=== PATIENT | female | born 1950 | race Caucasian/White ===

== ENCOUNTER 2017-12-30 06:58 | Day surgery (SDC) | payer MEDICARE, OTHER ==
[2017-12-30] MEDS ORDERED: LACTATED RINGERS 1,000 ML IV ONE (07:54)
[2017-12-30] MEDS ORDERED: BENZOCAINE/TETRACAINE/BUTAMBEN SPRAY 56 GM TOP ONE ×2 (08:01→08:42)
[2017-12-30] MEDS ORDERED: fentaNYL 100 MCG/2 ML VIAL IVP ONE (08:38)
[2017-12-30] MEDS ORDERED: MIDAZOLAM 2 MG/2 ML VIAL IVP ONE (08:38)
[2017-12-30 10:02] VITALS: BP 146/60
== END 2017-12-30 06:59 | disposition home or self-care (01) ==
LOC: SDS 06:58
PROVIDERS: ATTEND Surgery
PROC: 0DB78ZX Excision of Stomach, Pylorus, Via Natural or Artificial Opening Endoscopic, Diagnostic (ICD-10-PCS; 2017-12-30)
PROC: 0DB38ZX Excision of Lower Esophagus, Via Natural or Artificial Opening Endoscopic, Diagnostic (ICD-10-PCS; 2017-12-30)
PROC: 0DJD8ZZ Inspection of Lower Intestinal Tract, Via Natural or Artificial Opening Endoscopic (ICD-10-PCS; principal; 2017-12-30 08:30)
PROC: 0DB98ZX Excision of Duodenum, Via Natural or Artificial Opening Endoscopic, Diagnostic (ICD-10-PCS; 2017-12-30 08:30)
DX: Z12.11 Encounter for screening for malignant neoplasm of colon (principal); K64.8 Other hemorrhoids; K29.80 Duodenitis without bleeding; K26.9 Duodenal ulcer, unspecified as acute or chronic, without hemorrhage or perforation; K44.9 Diaphragmatic hernia without obstruction or gangrene; R12 Heartburn; K20.9 Esophagitis, unspecified; E11.9 Type 2 diabetes mellitus without complications; I10 Essential (primary) hypertension; E78.5 Hyperlipidemia, unspecified; Z79.84 Long term (current) use of oral hypoglycemic drugs; Z79.82 Long term (current) use of aspirin
CPT/HCPCS: 43239; A9270; G0121; J7120

== ENCOUNTER 2018-04-22 12:21 | Inpatient (IN) | payer MEDICARE, OTHER ==
[2018-04-22 13:18] LABS: CALCIUM 9.5 mg/dL (8.5-10.3); CREATININE 0.6 mg/dL (0.4-1.0); MAGNESIUM 1.6 mg/dL (1.7-2.8); PHOSPHORUS 3.1 mg/dL (2.5-4.6)
--- NOTE | 2018-04-22 13:25 | XRAY Report ---
EXAM: CHEST RADIOGRAPHY EXAM DATE: 04/22/2018 12:41 PM. CLINICAL HISTORY: Hyponatremia. Weakness. Shaky. COMPARISON: None. TECHNIQUE: 2 views. FINDINGS: Lungs/Pleura: No focal opacities evident. No pleural effusion. No pneumothorax. Normal volumes. Mediastinum: Heart size is normal. Aorta is mildly tortuous. Aortic atherosclerosis. Other: Degenerative changes of the thoracic spine. IMPRESSION: 1. No acute disease in the chest. [facility] Referring Provider Line: [phone] SITE ID: [id number]
[2018-04-22] MEDS ORDERED: SODIUM CHLORIDE 0.9% 1,000 ML IV ONE (13:31)
--- NOTE | 2018-04-22 13:34 | ED Physician Documentation ---
History of Present Illness - Stated complaint Stated Complaint: LOW SODIUM - Chief complaint Chief Complaint: General - History obtained from History obtained from: Patient - History of Present Illness Timing: Other (67-year-old woman with history of hypertension. About a week and a half ago she was switched from atenolol to lisinopril and chlorthalidone. Starting about 4 days ago she has had poor sleep, vertigo, and headaches. She was seen in the [place] [facility] for the symptoms and had testing done including a CT which was out without acute change, and she had blood work which was notable for a sodium of 118, chloride of 83, and she was sent here for further evaluation and treatment. She denies seizure activity. She has not had altered mental status. Headaches are bitemporal and not severe.) Review of Systems Ten Systems: 10 systems reviewed and negative Constitutional: reports: Fatigue. 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 HEENT: Tonsil/Adenoidectomy - Present Medications Home Medications: Ambulatory Orders Medication Instructions Recorded Confirmed Allopurinol [Zyloprim] 200 mg PO DAILY 12/29/17 12/30/17 Aspirin 81 mg PO DAILY 12/29/17 12/30/17 Atenolol 100 mg PO DAILY 12/29/17 12/30/17 Metformin HCl [Metformin HCl ER] 1,000 mg PO DAILY 12/29/17 12/30/17 Red Yeast Rice 1,200 mg PO DAILY 12/29/17 12/30/17 - Allergies Allergies/Adverse Reactions: Allergies Allergy/AdvReac Type Severity Reaction Status Date / Time formaldehyde AdvReac Itching Verified 12/30/17 07:57 nickel AdvReac Edema Verified 12/30/17 07:57 - Family History Family history: reports: Non contributory PD ED PE NORMAL - Vitals Vital signs reviewed: Yes - General General: Alert and oriented X 3, No acute distress - HEENT HEENT: PERRL, EOMI - Neck Neck: Supple, no meningeal sign, No bony TTP - Cardiac Cardiac: RRR, No murmur - Respiratory Respiratory: No respiratory distress, Clear bilaterally - Abdomen Abdomen: Normal bowel sounds, Soft, Non tender - Back Back: No CVA TTP, No spinal TTP - Derm Derm: Normal color, Warm and dry - Extremities Extremities: No deformity, No tenderness to palpate, No edema, No calf tenderness / cord - Neuro Neuro: Alert and oriented X 3, Normal speech - Psych Psych: Normal mood, Normal affect Results - Vitals Vitals: Vital Signs - 24 hr 04/22/18 12:26 Temperature 36.3 C L Heart Rate 76 Respiratory 18 Rate Blood Pressure 180/75 H O2 Saturation 100 Oxygen O2 Source Room air - Labs Labs: Laboratory Tests 04/22/18 13:00 Sodium 115 L* Potassium 4.3 Chloride 82 L Carbon Dioxide 22 Anion Gap 11.0 BUN 14 Creatinine 0.6 Estimated GFR (MDRD) 99 Glucose 112 H Calcium 9.5 Phosphorus 3.1 Magnesium 1.6 L - Rads (name of study) 2v chest Radiology: EMP read contemporaneously (NAD) PD MEDICAL DECISION MAKING - ED course ED course: 67-year-old woman with acute hyponatremia likely due to starting chlorthalidone 2 weeks ago. The levels are such that it probably mandates hospital admission. She is appears euvolemic but is probably slightly hypovolemic from the new diuretic and is started on very gentle saline rehydration and a free water restriction. Call to the hospitalist for admission at 1:30 PM. Departure - Departure Disposition: 66 [facility] DC/Xfer Clinical Impression: Hyponatremia Condition: Serious
[2018-04-22 13:53] LABS: BASOPHILS # (AUTO) 0.1 10^3/uL (0.0-0.1); BASOPHILS % (AUTO) 0.7 %; EOSINOPHILS # (AUTO) 0.3 10^3/uL (0.0-0.7); EOSINOPHILS % (AUTO) 2.7 %; HGB - HEMOGLOBIN 15.6 g/dL (12.0-16.0); LYMPHOCYTES # (AUTO) 3.2 10^3/uL (1.5-3.5); LYMPHOCYTES % (AUTO) 29.5 %; MEAN CORPUSCULAR HEMOGLOBIN 31.9 pg (27.0-31.0); MEAN CORPUSCULAR HGB CONC 35.5 g/dL (32.0-36.0); MEAN CORPUSCULAR VOLUME 89.9 fL (81.0-99.0); MEAN PLATELET VOLUME 8.9 fL (7.9-10.8); MONOCYTES # (AUTO) 0.8 10^3/uL (0.0-1.0); MONOCYTES % (AUTO) 7.6 %; NEUTROPHILS # (AUTO) 6.4 10^3/uL (1.5-6.6); NEUTROPHILS % (AUTO) 59.5 %; PLT - PLATELET COUNT 256 10^3/uL (130-450); RED CELL DISTRIBUTION WIDTH 13.2 % (12.0-15.0); WHITE BLOOD COUNT 10.7 x10^3/uL (4.8-10.8)
[2018-04-22] MEDS ORDERED: ONDANSETRON 4 MG/2 ML VIAL IVP PRN ×2 (14:13→15:30)
[2018-04-22] MEDS ORDERED: ONDANSETRON ODT 4 MG TABLET TL PRN ×2 (14:13→15:30)
[2018-04-22] MEDS ORDERED: SODIUM CHLORIDE FLUSH 0.9% 10 ML SYRINGE IVP PRN ×2 (14:13→15:30)
[2018-04-22] MEDS ORDERED: ACETAMINOPHEN 325 MG TABLET PO PRN ×2 (14:13→15:30)
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
[2018-04-22] MEDS ORDERED: SODIUM CHLORIDE 0.9% 1,000 ML IV SCH (15:00)
[2018-04-22] MEDS: SODIUM CHLORIDE 0.9% 1,000 ML IV SCH (16:27)
[2018-04-22] MEDS: SODIUM CHLORIDE FLUSH 0.9% 10 ML SYRINGE IVP SCH (16:29)
[2018-04-22] MEDS ORDERED: SODIUM CHLORIDE FLUSH 0.9% 10 ML SYRINGE IVP SCH (17:00)
[2018-04-22 18:49] LABS: CALCIUM 9.1 mg/dL (8.5-10.3); CREATININE 0.8 mg/dL (0.4-1.0)
[2018-04-22] MEDS: ALLOPURINOL 100 MG TABLET PO SCH (19:57)
[2018-04-22] MEDS: ASPIRIN CHEW 81 MG TABLET PO SCH (19:57)
[2018-04-22] MEDS: NAPROXEN 250 MG TABLET PO PRN (20:32)
[2018-04-22] MEDS ORDERED: ALLOPURINOL 100 MG TABLET PO SCH (21:00)
[2018-04-22] MEDS ORDERED: ASPIRIN CHEW 81 MG TABLET PO SCH (21:00)
[2018-04-23] MEDS: SODIUM CHLORIDE FLUSH 0.9% 10 ML SYRINGE IVP SCH ×3 (01:03→16:41)
[2018-04-23] MEDS: SODIUM CHLORIDE 0.9% 1,000 ML IV SCH ×2 (02:32→15:36)
[2018-04-23] MEDS ORDERED: NON FORMULARY MED (Losartan Potassium [Losartan Potassium] 25 MG) PO SCH (09:00)
[2018-04-23] MEDS ORDERED: POLYETHYLENE GLYCOL 3350 17 GM PACKET PO SCH (09:00)
[2018-04-23] MEDS: INSULIN ASPART 300 UNIT/3 ML PEN SUBQ SCH ×4 (09:05→20:38)
[2018-04-23] MEDS: LOSARTAN 50 MG TABLET PO SCH (09:23)
[2018-04-23] MEDS: POLYETHYLENE GLYCOL 3350 17 GM PACKET PO SCH (09:23)
[2018-04-23 09:25] LABS: CALCIUM 8.8 mg/dL (8.5-10.3); CREATININE 0.7 mg/dL (0.4-1.0)
--- NOTE | 2018-04-23 12:30 | PROVIDER PROGRESS NOTE ---
Subjective - Prog Note Date Prog Note Date: 04/23/18 Prog Note Time: 12:28 - Subjective Pt reports feeling: Improved Subjective: less headache. less nausea. sodium has improved. Current Medications - Current Medications Current Medications: Active Medications Allopurinol (Zyloprim) 200 mg PO QPM [facility] Last Admin: 04/22/18 19:57 Dose: 200 mg Aspirin (St Memo Aspirin) 81 mg PO QPM [facility] Last Admin: 04/22/18 19:57 Dose: 81 mg Sodium Chloride (Normal Saline 0.9%) 1,000 mls @ 75 mls/hr IV .[id number] [facility] Last Admin: 04/23/18 02:32 Dose: 75 mls/hr Insulin Aspart (Novolog) 1 - 5 unit SUBQ 0800,1200,1700,2100 [facility] PRN Reason: Protocol Last Admin: 04/23/18 11:16 Dose: Not Given Losartan Potassium (Cozaar) 25 mg PO DAILY [facility] Last Admin: 04/23/18 09:23 Dose: 25 mg Naproxen (Naprosyn) 250 mg PO TID PRN PRN Reason: PAIN Last Admin: 04/22/18 20:32 Dose: 250 mg Ondansetron HCl (Zofran Inj) 4 mg IVP Q6HR PRN PRN Reason: Nausea / Vomiting Ondansetron HCl (Zofran Odt) 4 mg TL Q6HR PRN PRN Reason: Nausea / Vomiting Polyethylene Glycol (Miralax) 17 gm PO DAILY [facility] Last Admin: 04/23/18 09:23 Dose: 17 gm Sodium Chloride (Normal Saline Flush 0.9%) 10 ml IVP PRN PRN PRN Reason: NEEDED PER PROVIDER ORDERS Sodium Chloride (Normal Saline Flush 0.9%) 10 ml IVP 0100,0900,1700 [facility] Last Admin: 04/23/18 09:06 Dose: Not Given Allopurinol [Zyloprim] 200 mg PO QPM 12/29/17 Aspirin 81 mg PO QPM 12/29/17 Metformin HCl [Metformin HCl ER] 1,000 mg PO 1700 12/29/17 Red Yeast Rice 1,200 mg PO DAILY 12/29/17 Chlorthalidone 50 mg PO DAILY 04/22/18 Cholecalciferol (Vitamin D3) [Vitamin D3] 1,000 units PO DAILY 04/22/18 Losartan Potassium 25 mg PO DAILY 04/22/18 Omeprazole 20 mg PO QDAC 04/22/18 Objective - Vital Signs/Intake & Output Reviewed Vital Signs: Yes Vital Signs: Vital Signs x48h Temp Pulse Resp BP BP Pulse Ox 04/23/18 11:27 36.2 C L 83 18 158/65 H 98 04/23/18 08:00 36.4 C L 74 18 152/72 H 97 04/23/18 05:33 36.5 C 76 18 126/64 99 Intake & Output: Intake & Output 04/20/18 04/21/18 04/22/18 04/23/18 23:59 23:59 23:59 23:59 Intake Total 1368 1236.25 Balance 1368 1236.25 - Objective General Appearance: positive: No acute distress, Alert Eyes Bilateral: positive: PERRL, EOMI ENT: positive: No signs of dehydration Neck: positive: No JVD. negative: Stiff neck, Carotid bruit Respiratory: positive: Chest non-tender, No respiratory distress. negative: Wheezes, Rales, Rhonchi Cardiovascular: positive: Regular rate & rhythm. negative: Gallop/S4, Friction rub Abdomen: positive: Non-tender, Nml bowel sounds, No distention Skin: positive: Warm, Dry Extremities: positive: Full ROM, No pedal edema Neurologic/Psychiatric: positive: Oriented x3, CN's nml (2-12), Motor nml - Lab Results Fish Bones: 04/22/18 12:47 04/23/18 09:01 Other Labs: Lab Results x24hrs 04/23/18 04/23/18 04/22/18 Range/Units 09:01 06:11 18:26 Sodium 122 L 117 L* (135-145) mmol/L Potassium 4.0 4.0 (3.5-5.0) mmol/L Chloride 91 L 84 L (101-111) mmol/L Carbon Dioxide 21 22 (21-32) mmol/L Anion Gap 10.0 11.0 (6-13) BUN 11 12 (6-20) mg/dL Creatinine 0.7 0.8 (0.4-1.0) mg/dL Estimated GFR (MDRD) 83 L 71 L (>89) Glucose 205 H 176 H (70-100) mg/dL POC Whole Bld Glucose 127 H (70 - 100) mg/dL Calcium 8.8 9.1 (8.5-10.3) mg/dL ABX Reporting Has patient been on IV antibiotics over the past 48 hours?: No Assessment/Plan - Problem List (1) Hyponatremia Impression: Most likely attributed to the chlorthalidone use. Common side effect. Usually not this severe. Plan: Stopped the chlorthalidone Started on 0.9 normal saline at 75 cc an hour, today is Day #2 So far sodium is 122 today from 115 yesterday. Avoid rapid correction to avoid central pontine myelinolysis. I'm not going to use 3% normal saline at this time unless she becomes more symptomatic with seizures, encephalopathy Freewater restriction to 750 cc a day continues (2) Drug or medicinal substance causing adverse effect in therapeutic use Conclusion/Plan: Hyponatremia from chlorthalidone. We will stop the drug Qualifiers: Encounter type: initial encounter Qualified Code(s): T50.905A - Adverse effect of unspecified drugs, medicaments and biological substances, initial encounter (3) Essential hypertension Conclusion/Plan: Blood pressure is very between 139-158 systolic so far today. We are stopping her chlorthalidone but will continue her losartan. Add Norvasc if necessary. So far not necessary. (4) Type 2 diabetes mellitus without complication, without long-term current use of insulin Conclusion/Plan: Usually on metformin. We will hold while the patient is in the hospital. Start on low-dose sliding scale glucose check in the morning This am she is 175. I will add lantus 5 units at night while here.
[2018-04-23] MEDS ORDERED: INSULIN GLARGINE 300 UNIT/3 ML PEN SUBQ SCH (13:00)
[2018-04-23] MEDS: NAPROXEN 250 MG TABLET PO PRN (13:31)
[2018-04-23 14:10] LABS: CALCIUM 9.1 mg/dL (8.5-10.3); CREATININE 0.7 mg/dL (0.4-1.0)
[2018-04-23] MEDS: ALLOPURINOL 100 MG TABLET PO SCH (19:50)
[2018-04-23] MEDS: ASPIRIN CHEW 81 MG TABLET PO SCH (19:50)
[2018-04-23] MEDS: ZOLPIDEM 5 MG TABLET PO PRN (22:25)
[2018-04-24] MEDS: SODIUM CHLORIDE 0.9% 1,000 ML IV SCH ×2 (03:43→18:03)
[2018-04-24 06:36] LABS: CREATININE 0.6 mg/dL (0.4-1.0); MAGNESIUM 1.7 mg/dL (1.7-2.8)
[2018-04-24] MEDS: SODIUM CHLORIDE FLUSH 0.9% 10 ML SYRINGE IVP SCH ×3 (07:09→17:00)
[2018-04-24 07:31] LABS: HB2 TOTAL 15.4 g/dL; HEMOGLOBIN A1C 0.65 g/dL
[2018-04-24] MEDS: INSULIN ASPART 300 UNIT/3 ML PEN SUBQ SCH ×4 (07:38→21:20)
[2018-04-24] MEDS: POLYETHYLENE GLYCOL 3350 17 GM PACKET PO SCH (08:58)
[2018-04-24] MEDS: LOSARTAN 50 MG TABLET PO SCH (08:58)
--- NOTE | 2018-04-24 10:50 | PROVIDER PROGRESS NOTE ---
Subjective - Prog Note Date Prog Note Date: 04/24/18 Prog Note Time: 10:47 - Subjective Subjective: she is doing well. No nausea, no headache. walking in room, eating. hates the gatordade. She has been drinking 96 ounces of water at home on a usual basis and then started the chlorthalidone. Current Medications - Current Medications Current Medications: Active Medications Allopurinol (Zyloprim) 200 mg PO QPM [facility] Last Admin: 04/23/18 19:50 Dose: 200 mg Aspirin (St Memo Aspirin) 81 mg PO QPM [facility] Last Admin: 04/23/18 19:50 Dose: 81 mg Sodium Chloride (Normal Saline 0.9%) 1,000 mls @ 75 mls/hr IV .[id number] [facility] Last Admin: 04/24/18 03:43 Dose: 75 mls/hr Insulin Aspart (Novolog) 1 - 5 unit SUBQ 0800,1200,1700,2100 [facility] PRN Reason: Protocol Last Admin: 04/24/18 11:53 Dose: Not Given Insulin Glargine (Lantus Solostar) 5 unit SUBQ QPM [facility] Losartan Potassium (Cozaar) 50 mg PO DAILY [facility] Naproxen (Naprosyn) 250 mg PO TID PRN PRN Reason: PAIN Last Admin: 04/23/18 13:31 Dose: 250 mg Ondansetron HCl (Zofran Inj) 4 mg IVP Q6HR PRN PRN Reason: Nausea / Vomiting Ondansetron HCl (Zofran Odt) 4 mg TL Q6HR PRN PRN Reason: Nausea / Vomiting Polyethylene Glycol (Miralax) 17 gm PO DAILY [facility] Last Admin: 04/24/18 08:58 Dose: 17 gm Sodium Chloride (Normal Saline Flush 0.9%) 10 ml IVP PRN PRN PRN Reason: NEEDED PER PROVIDER ORDERS Sodium Chloride (Normal Saline Flush 0.9%) 10 ml IVP 0100,0900,1700 [facility] Last Admin: 04/24/18 07:39 Dose: Not Given Zolpidem Tartrate (Ambien) 5 mg PO QPM PRN PRN Reason: Insomnia Last Admin: 04/23/18 22:25 Dose: 5 mg Allopurinol [Zyloprim] 200 mg PO QPM 12/29/17 Aspirin 81 mg PO QPM 02/05/18 Metformin HCl [Metformin HCl ER] 1,000 mg PO 1700 12/29/17 Red Yeast Rice 1,200 mg PO DAILY 12/29/17 Chlorthalidone 50 mg PO DAILY 04/22/18 Cholecalciferol (Vitamin D3) [Vitamin D3] 1,000 units PO DAILY 04/22/18 Losartan Potassium 25 mg PO DAILY 04/22/18 Omeprazole 20 mg PO QDAC 04/22/18 Objective - Vital Signs/Intake & Output Reviewed Vital Signs: Yes Vital Signs: Vital Signs x48h Temp Pulse Resp BP Pulse Ox 04/24/18 07:35 36.4 C L 74 18 157/85 H 97 04/24/18 04:00 36.4 C L 75 16 138/57 H 98 Intake & Output: Intake & Output 04/21/18 04/22/18 04/23/18 04/24/18 23:59 23:59 23:59 23:59 Intake Total 1368 3116.25 1380.75 Output Total 1 Balance 1368 3116.25 1379.75 - Objective General Appearance: positive: No acute distress, Alert Eyes Bilateral: positive: PERRL, EOMI ENT: positive: No signs of dehydration, Other (teeth) Neck: positive: No JVD. negative: Stiff neck, Carotid bruit Respiratory: positive: Chest non-tender. negative: Wheezes, Rales, Rhonchi Cardiovascular: positive: Regular rate & rhythm. negative: Gallop/S4, Friction rub Abdomen: positive: Non-tender, No organomegaly, Nml bowel sounds, No distention Skin: positive: Warm, Dry Extremities: positive: No pedal edema Neurologic/Psychiatric: positive: Oriented x3, CN's nml (2-12), Motor nml, Sensation nml. negative: Weakness, Slurred/abnml speech - Lab Results Fish Bones: 04/22/18 12:47 04/24/18 14:00 Other Labs: Lab Results x24hrs 04/24/18 04/24/18 04/24/18 Range/Units 07:19 05:15 05:15 Sodium 124 L (135-145) mmol/L Potassium 4.2 (3.5-5.0) mmol/L Chloride 92 L (101-111) mmol/L Carbon Dioxide 23 (21-32) mmol/L Anion Gap 9.0 (6-13) BUN 12 (6-20) mg/dL Creatinine 0.6 (0.4-1.0) mg/dL Estimated GFR (MDRD) 99 (>89) Glucose 120 H (70-100) mg/dL POC Whole Bld Glucose 116 H (70 - 100) mg/dL Glycated Hemoglobin 6.0 (4.6-6.2) % Estim Average Glucose 126 H (70-100) Calcium 9.0 (8.5-10.3) mg/dL Magnesium 1.7 (1.7-2.8) mg/dL 04/23/18 04/23/18 04/23/18 Range/Units 20:31 13:55 13:25 Sodium 122 L (135-145) mmol/L Potassium 4.1 (3.5-5.0) mmol/L Chloride 90 L (101-111) mmol/L Carbon Dioxide 22 (21-32) mmol/L Anion Gap 10.0 (6-13) BUN 12 (6-20) mg/dL Creatinine 0.7 (0.4-1.0) mg/dL Estimated GFR (MDRD) 83 L (>89) Glucose 137 H (70-100) mg/dL POC Whole Bld Glucose 174 H 148 H (70 - 100) mg/dL Glycated Hemoglobin (4.6-6.2) % Estim Average Glucose (70-100) Calcium 9.1 (8.5-10.3) mg/dL Magnesium (1.7-2.8) mg/dL Assessment/Plan - Problem List (1) Hyponatremia Impression: Most likely attributed to the chlorthalidone use. Common side effect. Usually not this severe. Her headache and nausea are gone. Plan: Stopped the chlorthalidone Started on 0.9 normal saline at 75 cc an hour, today is Day #3 So far sodium is 124 today from 115 on admit. Avoid rapid correction to avoid central pontine myelinolysis. I'm not going to use 3% normal saline at this time unless she becomes more symptomatic with seizures, encephalopathy Aim for 128-129 and then dc to home. Freewater restriction to 750 cc a day continues (2) Drug or medicinal substance causing adverse effect in therapeutic use Conclusion/Plan: Hyponatremia from chlorthalidone. We will stop the drug Qualifiers: Encounter type: initial encounter Qualified Code(s): T50.905A - Adverse effect of unspecified drugs, medicaments and biological substances, initial encounter (3) Essential hypertension Conclusion/Plan: Blood pressure is very between 138-157 systolic so far today. We are stopping her chlorthalidone but will continue her losartan. Add Norvasc if necessary. So far not necessary. Will just increase losartan from 25 mg to 50 mg. (4) Type 2 diabetes mellitus without complication, without long-term current use of insulin Conclusion/Plan: Usually on metformin. We will hold while the patient is in the hospital. Start on low-dose sliding scale glucose check in the morning This am she is 120 after I added lantus 5 units at night yesterday.
[2018-04-24] MEDS ORDERED: LOSARTAN 50 MG TABLET PO ONE (11:30)
[2018-04-24 14:29] LABS: CALCIUM 9.3 mg/dL (8.5-10.3); CREATININE 0.6 mg/dL (0.4-1.0)
[2018-04-24] MEDS ORDERED: INSULIN GLARGINE 300 UNIT/3 ML PEN SUBQ SCH (21:00)
[2018-04-24] MEDS: ASPIRIN CHEW 81 MG TABLET PO SCH (21:20)
[2018-04-24] MEDS: ALLOPURINOL 100 MG TABLET PO SCH (21:20)
[2018-04-24] MEDS: ZOLPIDEM 5 MG TABLET PO PRN (23:43)
[2018-04-25] MEDS: SODIUM CHLORIDE FLUSH 0.9% 10 ML SYRINGE IVP SCH (01:53)
[2018-04-25 06:38] LABS: ALBUMIN 4.1 g/dL (3.2-5.5); ALBUMIN/GLOBULIN RATIO 1.4 (1.0-2.2); ALKALINE PHOSPHATASE 127 IU/L (42-121); ALT ALANINE AMINOTRANSFERASE 149 IU/L (10-60); AST ASPARTATE AMINOTRANSFERASE 80 IU/L (10-42); BILIRUBIN,TOTAL 0.8 mg/dL (0.2-1.0); BUN - BLOOD UREA NITROGEN 11 mg/dL (6-20); CALCIUM 9.1 mg/dL (8.5-10.3); CARBON DIOXIDE - CO2 23 mmol/L (21-32); CHLORIDE 95 mmol/L (101-111); CREATININE 0.5 mg/dL (0.4-1.0); GFR - MDRD 122 (>89); GLUCOSE 112 mg/dL (70-100); MAGNESIUM 1.6 mg/dL (1.7-2.8); PHOSPHORUS 3.8 mg/dL (2.5-4.6); SODIUM 128 mmol/L (135-145)
--- NOTE | 2018-04-25 07:41 | Discharge Plan ---
Discharge Plan Disposition: 01 Home, Self Care Condition: Good Prescriptions: Losartan [Cozaar] 50 mg PO DAILY #30 tablet Diet: Diabetic Activity Restrictions: Activity as Tolerated Shower Restrictions: No Driving Restrictions: No Additional Instructions or Follow Up instructions: You were admitted to the hospital because of nausea, headache and just not feeling well. You had been evaluated by your [facility] and found to have a low sodium to 118. When you were sent to our emergency room we found your sodium to be 115. Normal is in the 130 range. We think the cause of your low sodium is the chlorthalidone that was prescribed for your blood pressure approximately 2 weeks ago. But you also shared with me that you drink up to 96 ounces of water a day. You have always done so. Maybe the combination of the water intake and the chlorthalidone brought your sodium to a dangerously low level. We were able to restrict your intake of free water and give you 0.9 normal saline to bring your sodium up to 128 today. It is still not completely normal, but you are feeling well; your symptoms of gone, and you are out of the danger range. On the day of discharge we did 1 more blood test before you left and found your liver enzymes to be elevated. In looking at the medical record your liver enzymes have been elevated in the past as far back as 2012. Right before you left, you had blood work done for hepatitis, and an ultrasound done. Please see your primary care provider in the next week. I have stopped your chlorthalidone and you will need your blood pressure checked in the next week. I have increased your losartan from 25 mg to 50 mg. Since you have 25 mg tablets , take 2 a day until they run out and then brick picker the 50 mg tablets at the [facility] pharmacy. When you see your primary care provider this coming week, make sure they call the hospital to get the results of the hepatitis panel and the ultrasound to review with you at your office visit. Your primary care provider will also need to re-do a BMP to check her sodium and electrolytes. No Smoking: If you smoke, Please STOP! Call for help. Follow-up with: EMILEE FORBES [Primary Care Provider] -
[2018-04-25] MEDS: SODIUM CHLORIDE 0.9% 1,000 ML IV SCH (07:42)
[2018-04-25 08:14] VITALS: BP 147/80
--- NOTE | 2018-04-25 08:45 | Ultrasound Report ---
EXAM: ABDOMEN ULTRASOUND EXAM DATE: 04/25/2018 08:30 AM. CLINICAL HISTORY: Elevated LFTs x 3 yrs. COMPARISON: CT 12/23/2012. TECHNIQUE: Real-time scanning was performed with static images obtained. FINDINGS: Liver: Increased in echotexture 17.5 cm. Main portal vein flow: Hepatopetal. Gallbladder: Normal. No stones, wall thickening, or sonographic Lion's sign. Biliary System: Common bile duct measures 4.2 mm. No intrahepatic or extrahepatic ductal dilatation. Pancreas: Visualized portion is unremarkable. Kidneys: Right: 11.0 cm longitudinally. Status post partial nephrectomy. Lateral cystic lesion containing an e chogenic focus measures 1.3 cm. Left: 11.0 cm longitudinally. Normal. No contour-deforming mass, stones, or hydronephrosis. Spleen: 10.6 cm. Normal in size and echotexture. Aorta and Inferior Vena Cava: Unremarkable. Other: None. IMPRESSION: 1. Fatty liver. 2. Status post partial right nephrectomy. Cystic lesion with associated calcification in the lateral aspect, which may correspond to cyst seen in the surgical bed on CT 12/23/12. Recommend follow up CT w ith IV contrast for further evaluation. [facility] Referring Provider Line: [phone] SITE ID: [id number]
[2018-04-25] MEDS ORDERED: LOSARTAN 50 MG TABLET PO SCH (09:00)
[2018-04-25] MEDS: INSULIN ASPART 300 UNIT/3 ML PEN SUBQ SCH (09:01)
[2018-04-25] MEDS: POLYETHYLENE GLYCOL 3350 17 GM PACKET PO SCH (09:03)
--- NOTE | 2018-04-26 09:07 | DISCHARGE SUMMARY ---
Physician: Bina Espitia MD DATE OF ADMISSION: 04/22/2018 DATE OF DISCHARGE: 04/25/2018 DISCHARGE DIAGNOSES 1. Hyponatremia. 2. Drug or medicinal substance causing adverse effect with therapeutic use. 3. Essential hypertension. 4. Type 2 diabetes mellitus, without long-term use of insulin. 5. Abnormal LFTs. 6. Fatty liver. DISCHARGE MEDICATIONS 1. Allopurinol 200 mg p.o. daily. 2. Aspirin 81 mg p.o. daily. 3. Vitamin D3 at 1000 units daily. 4. Cozaar has been increased from 25 mg a day to 50 mg a day. 5. Metformin extended release 1000 mg p.o. daily. 6. Omeprazole 20 mg p.o. daily. 7. Red yeast rice 600 mg capsule, 2 capsules daily. 8. Chlorthalidone has been discontinued. PRINCIPAL PROCEDURES 1. We used 0.9 normal saline IV infusion slowly to raise sodium . 2. Abdominal ultrasound done for abnormal liver function studies show fatty liver, partial right nephrectomy and cystic lesion with associated calcification in the lateral aspect of the right kidney. May correspond to cysts seen in the surgical bed on CT 12/23/2012. Recommend followup CT with IV contrast for further evaluation. The liver has increased echotexture at 17.5 cm. She has hepatopetal portal vein flow. 3. An acute hepatitis panel is pending. 4. Chest x-ray shows no acute disease in the chest. HOSPITAL COURSE: She is a imtiaz 67-year-old diabetic, hypertensive female who is followed by [facility]. In an effort to control her blood pressure, her medicines were changed about 2 weeks ago to Cozaar and chlorthalidone. Shortly thereafter, she has been experiencing weakness, headache, nausea that has been getting gradually worse to the point that she has been very weak and almost limp as a noodle. She was seen in the [facility] clinic and found to have a sodium of 118, and she was sent to our hospital. Our sodium was 115. The patient was begun on fluid restriction, started on 0.9 normal saline and monitored. Our goal was to adjust her sodium very slowly, not quickly, to avoid central pontine myelinolysis. She went from 115 to 122 on the second day, to 124 on the third day, and then 128 on the day of discharge. She felt stable enough to return to home and was instructed not to resume chlorthalidone. She also drinks 96 ounces of water a day, and that probably did not help. I told her to decrease her water intake to 42 ounces a day. Her diabetes was well controlled during her stay. Glycosylated hemoglobin was 6%. Random glucoses and fasting glucoses ranged from 117-137. Blood pressure was elevated during her stay as high as 176 systolic. Cozaar was increased from 25 mg a day to 50 mg a day. Her abnormal liver function studies were noted. In her medical record, she has a history of fatty liver as well as previous history of alcohol abuse. Although she states it is not from alcoholic liver disease, she may have changes of early alcoholic liver disease that she is unaware of. On the day of discharge, total bilirubin was 0.8, AST was 80, ALT was 149, alkaline phosphatase 127. Liver ultrasound was done. Acute hepatitis panel is pending. She follows up with a machine operator hay stacker about every 6-9 months for this. DISCHARGE EXAMINATION She is discharged in stable condition. She is ambulating in her room, in the hallway. She is able to get up out of the bed into a chair to eat, watch TV, go to the bathroom without any assist. Temperature is 36.4, pulse of 75, blood pressure 147/80, respirations 18, 97% on room air. She is a tall, middle-aged woman, who looks older than her stated age. Quite a few of her upper teeth are missing. Acne rosacea red flush on cheeks. Neck is supple. lungs are clear. She has a regular rate and rhythm with getting up. There is no increased respiratory effort. She is comfortable doing so. Extremities have no edema. She is alert and oriented to person, place and time. She is discharged in stable condition. I asked her to follow up with her primary care provider at the [facility]. She needs to be sure that she does not resume her chlorthalidone. She needs her blood pressure checked in a week to make sure the Cozaar is effective. Most of all, she needs her sodium checked in a week to make sure she is normalizing. She is also asked to cut back her water intake to 42 ounces a day and not 96 ounces a day.. [facility] [place] [place] TD: 04/25/2018 11:51 MALLORY
[2018-04-27 14:31] LABS: HEPATITIS A IGM NON-REACTIVE (NON-REACTIVE); HEPATITIS B CORE ANTIBODY IGM NON-REACTIVE (NON-REACTIVE); HEPATITIS B SURFACE ANTIGEN NON-REACTIVE (NON-REACTIVE); HEPATITIS C ANTIBODY NON-REACTIVE (NON-REACTIVE)
== END 2018-04-25 11:20 | disposition home or self-care (01) | DRG 641 ==
LOC: ED 12:21 → MS2 14:13 → ED 14:55
PROVIDERS: ADMIT Specialist; ATTEND Specialist
DX: E87.1 Hypo-osmolality and hyponatremia (principal); T50.2X5A Adverse effect of carbonic-anhydrase inhibitors, benzothiadiazides and other diuretics, initial encounter; E78.00 Pure hypercholesterolemia, unspecified; I10 Essential (primary) hypertension; E11.9 Type 2 diabetes mellitus without complications; M10.9 Gout, unspecified; M41.9 Scoliosis, unspecified; G89.29 Other chronic pain; M54.9 Dorsalgia, unspecified; K76.0 Fatty (change of) liver, not elsewhere classified; F10.11 Alcohol abuse, in remission; R79.89 Other specified abnormal findings of blood chemistry; K21.9 Gastro-esophageal reflux disease without esophagitis; M19.90 Unspecified osteoarthritis, unspecified site; M1A.9XX0 Chronic gout, unspecified, without tophus (tophi); M40.209 Unspecified kyphosis, site unspecified; M47.9 Spondylosis, unspecified; R93.421 Abnormal radiologic findings on diagnostic imaging of right kidney; H35.30 Unspecified macular degeneration; H26.9 Unspecified cataract; Z79.82 Long term (current) use of aspirin; Z79.84 Long term (current) use of oral hypoglycemic drugs; Z79.899 Other long term (current) drug therapy; Z90.5 Acquired absence of kidney; Z87.11 Personal history of peptic ulcer disease; Z87.891 Personal history of nicotine dependence; Z85.41 Personal history of malignant neoplasm of cervix uteri; Z90.710 Acquired absence of both cervix and uterus
CPT/HCPCS: 36415; 71046; 76700; 80048; 80053; 80074; 83036; 83735; 84100; 85025; 99283; 99284

== ENCOUNTER 2020-07-25 07:57 | Outpatient (CLI) | payer MEDICARE, OTHER ==
--- NOTE | 2020-08-03 10:01 | Mammography Report ---
BILATERAL DIGITAL SCREENING MAMMOGRAM 3D/2D: 07/25/2020 CLINICAL: Routine screening. Additional films were requested but not obtained. The tissue of both breasts is predominantly fatty. There are three groups/clusters of fine pleomorphic microcalcifications in the left breast, best seen on CC view. These measure approximately 0.5 to 1.0 cm in maximum breadth, each, and are lo cated in the medial, central, and lateral breast at middle-posterior depths. No mass or archtectural distortion associated. No suspicious finding in the right breast. IMPRESSION: INCOMPLETE: NEED PRIOR STUDIES FOR COMPARISON Three clusters of grouped fine pleomorphic microcalcifications, which need further evaluation with di agnostic mammogram and possibly ultrasound. This exam was interpreted at Station ID: [id number]. NOTE: For mammograms, a report in lay terms will be sent to the patient. Approximately 15% of breast malignancies will not be visualized mammographically. In the management of a palpable breast mass, a negative mammogram must not discourage biopsy of a clinically suspicious lesion. Electronically Signed By: Jude Long M.D. jr/:08/02/2020 12:59:14 ACR BI-RADS Category 0 Need prior studies for comparison 3340F PARENCHYMAL PATTERN: (F) - The breast(s) demonstrate(s) diffuse fatty replacement. BI-RADS CATEGORY: (0) - 0 RECOMMENDATION: (ADDMAM) - Recommend additional mammographic views. [id number] Immediate follow-up LATERALITY: (B)
== END 2020-07-25 07:58 | disposition home or self-care (01) ==
LOC: DI 07:57
DX: Z12.31 Encounter for screening mammogram for malignant neoplasm of breast (principal); R92.8 Other abnormal and inconclusive findings on diagnostic imaging of breast
CPT/HCPCS: 77063; 77067

== ENCOUNTER 2020-07-25 08:31 | Outpatient (CLI) | payer MEDICARE, OTHER ==
--- NOTE | 2020-07-25 09:13 | DEXA Report ---
PROCEDURE: Dexa Spine and/or Hip INDICATIONS: ASYMPTOMATIC MENOPAUSAL STATE TECHNIQUE: Dual energy x-ray absorptiometry (DXA) was performed on a [email or web address] System. Regions measur ed are the AP Spine, femoral neck, and if needed forearm. COMPARISON: None. FINDINGS: Lumbar Spine: Bone Mineral Density 1.045 g/cm/cm,T score -1.1, osteopenia Left Femoral Neck: Bone Mineral Density 0.776 g/cm/cm, T score -1.8, osteopenia (T score greater or equal to -1.0: NORMAL) (T score from -1.1 to -2.4: OSTEOPENIA) (T score less than or equal to -2.5 to: OSTEOPOROSIS) Impression: Osteopenia; patient is at increased risk for fracture. Patients with diagnosis of osteoporosis or osteopenia should have regular bone mineral density assess ment. For those eligible for Medicare, routine testing is allowed once every 2 years. Testing frequ ency can be increased for patients who have rapidly progressing disease or for those who are receivin g medical therapy to restore bone mass. Reviewed by: Marvel Bernabe MD on 07/25/2020 9:12 AM PDT Approved by: Marvel Bernabe MD on 07/25/2020 9:12 AM PDT Station ID: [id number]
== END 2020-07-25 08:32 | disposition home or self-care (01) ==
LOC: DI 08:31
PROVIDERS: ATTEND Internal Medicine
DX: M85.89 Other specified disorders of bone density and structure, multiple sites (principal)
CPT/HCPCS: 77080

== ENCOUNTER 2020-08-21 10:34 | Outpatient (CLI) | payer MEDICARE, OTHER ==
--- NOTE | 2020-08-21 15:19 | Mammography Report ---
UNILATERAL LEFT DIGITAL DIAGNOSTIC MAMMOGRAM 3D/2D: 08/21/2020 CLINICAL: Patient returns for magnifcation views of microcalcifications in the left breast. Comparison is made to exams dated: 07/25/2020 mammogram - [facility], 05/12/2017 mamm ogram, and 05/09/2016 mammogram - [facility]. The tissue of left breast is heterogeneo usly dense. This may lower the sensitivity of mammography. There are grouped pleomorphic calcifications in the left breast at 5 o'clock middle depth appear more coarse and punctate on additional views. These are increased in number. No other significant masses or calcifications are seen in the breast. IMPRESSION: PROBABLY BENIGN The grouped pleomorphic calcifications in the left breast appear more coarse and punctate on addition al views and are probably benign. A follow-up mammogram in 6 months is recommended to demonstrate stability. Exam findings conveyed to the patient. This exam was interpreted at Station ID: [id number]. NOTE: For mammograms, a report in lay terms will be sent to the patient. Approximately 15% of breast malignancies will not be visualized mammographically. In the management of a palpable breast mass, a negative mammogram must not discourage biopsy of a clinically suspicious lesion. Electronically Signed By: Sanjeev Mac M.D. slc/:08/21/2020 11:39:01 ACR BI-RADS Category 3: Probably benign [id number] PARENCHYMAL PATTERN: (D) - The breast(s) demonstrate(s) heterogeneously dense fibroglandular parvannesay ma. BI-RADS CATEGORY: (3) - 3 Mammogram [id number] 6 month follow-up LATERALITY: (B)
== END 2020-08-21 10:35 | disposition home or self-care (01) ==
LOC: DI 10:34
PROVIDERS: ATTEND Internal Medicine
DX: R92.8 Other abnormal and inconclusive findings on diagnostic imaging of breast (principal)

== ENCOUNTER 2020-11-28 18:28 | Outpatient (CLI) | payer MEDICARE, OTHER ==
--- OUTSIDE RECORDS SUMMARY | 2020-12-06 00:28 | EXTERNAL MEDICAL SUMMARY RPT | Continuity of Care Document ---
:1950 Demographics Phone Unavailable Preferred Language Unknown Marital Status Unknown Sabianist Affiliation Unknown Race Unknown Ethnic Group Unknown Author Organization [place] Address [address] [phone] Phone Care Team Providers Name Role Phone LEIDY Unavailable Unavailable CLERC Unavailable Unavailable Murry Unavailable Unavailable Clerc Unavailable Unavailable Wilfredo Unavailable Unavailable Problems date description facility 2013-06-24 08:00 ABN LIVER FUNCTION STUDY [facility] 2013-07-07 14:31 BONE CARTILAGE DIS NOS [facility] 2013-07-07 14:31 SCREENING FOR OSTEOPOROSIS [facility] 2015-01-12 08:28 TINNITUS NOS [facility] 2015-07-18 09:03 BONE CARTILAGE DIS NOS [facility] 2015-07-18 09:03 ASYMPT POSTMENOPAUSAL STATUS [facility] (AGE-RELATED) (NATURAL) 2017-12-30 06:58 TYPE 2 DIABETES MELLITUS WITHOUT [facility] COMPLICATIONS 2017-12-30 06:58 HYPERLIPIDEMIA, UNSPECIFIED [facility] 2017-12-30 06:58 ESSENTIAL (PRIMARY) HYPERTENSION [facility] 2017-12-30 06:58 ESOPHAGITIS, UNSPECIFIED [facility] 2017-12-30 06:58 DUODENAL ULCER, UNSP ACUTE OR [facility] CHRONIC, W/O HEMOR OR PERF 2017-12-30 06:58 DUODENITIS WITHOUT BLEEDING [facility] 2017-12-30 06:58 DIAPHRAGMATIC HERNIA WITHOUT [facility] OBSTRUCTION OR GANGRENE 2017-12-30 06:58 OTHER HEMORRHOIDS [facility] 2017-12-30 06:58 HEARTBURN [facility] 2017-12-30 06:58 ENCOUNTER FOR SCREENING FOR [facility] MALIGNANT NEOPLASM OF COLON 2017-12-30 06:58 STOPPER GRINDER (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 UNSPECIFIED 2018-04-22 14:13 HYPO-OSMOLALITY AND HYPONATREMIA [facility] 2018-04-22 14:13 ALCOHOL ABUSE, IN REMISSION [facility] 2018-04-22 14:13 OTHER CHRONIC PAIN [facility] 2018-04-22 14:13 UNSPECIFIED CATARACT [facility] 2018-04-22 14:13 UNSPECIFIED MACULAR DEGENERATION [facility] 2018-04-22 14:13 ESSENTIAL (PRIMARY) HYPERTENSION [facility] 2018-04-22 14:13 GASTRO-ESOPHAGEAL REFLUX DISEASE [facility] WITHOUT ESOPHAGITIS 2018-04-22 14:13 FATTY (CHANGE OF) LIVER, NOT [facility] ELSEWHERE CLASSIFIED 2018-04-22 14:13 GOUT, UNSPECIFIED [facility] 2018-04-22 14:13 UNSPECIFIED OSTEOARTHRITIS, [facility] UNSPECIFIED SITE 2018-04-22 14:13 CHRONIC GOUT, UNSPECIFIED, WITHOUT [facility] 2018-04-22 14:13 UNSPECIFIED KYPHOSIS, SITE [facility] UNSPECIFIED 2018-04-22 14:13 SCOLIOSIS, UNSPECIFIED [facility] 2018-04-22 14:13 SPONDYLOSIS, UNSPECIFIED [facility] 2018-04-22 14:13 DORSALGIA, UNSPECIFIED [facility] 2018-04-22 14:13 OTHER SPECIFIED ABNORMAL FINDINGS formerly [facility] OF BLOOD CHEMISTRY 2018-04-22 14:13 ABNORMAL RADIOLOGIC FINDINGS ON DX [facility] IMAGING OF R KIDNEY 2018-04-22 14:13 ADVRS EFF OF CRBNC-ANHYDR INHIBTR, [facility] BENZO/OTH DIURETC, INIT 2018-04-22 14:13 ASSISTED (CURRENT) USE OF ASPIRIN [facility] 2018-04-22 14:13 STOPPER GRINDER (CURRENT) USE OF ORAL [facility] HYPOGLYCEMIC DRUGS 2018-04-22 14:13 OTHER ASSISTED (CURRENT) DRUG [facility] THERAPY 2018-04-22 14:13 PERSONAL HISTORY OF MALIGNANT [facility] NEOPLASM OF CERVIX UTERI 2018-04-22 14:13 PERSONAL HISTORY OF PEPTIC ULCER [facility] DISEASE 2018-04-22 14:13 PERSONAL HISTORY OF NICOTINE [facility] DEPENDENCE 2018-04-22 14:13 ACQUIRED ABSENCE OF KIDNEY [facility] 2018-04-22 14:13 ACQUIRED ABSENCE OF BOTH CERVIX [facility] AND UTERUS 2020-07-25 07:57 OTH ABN AND INCONCLUSIVE FINDINGS formerly [facility] ON DX IMAGING OF BREAST 2020-07-25 07:57 ENCNTR SCREEN MAMMOGRAM FOR [facility] MALIGNANT NEOPLASM OF BREAST 2020-07-25 08:31 OTH DISRD OF BONE DENSITY AND [facility] STRUCTURE, MULTIPLE SITES 2020-08-21 10:34 OTH ABN AND INCONCLUSIVE FINDINGS [facility] ON DX IMAGING OF BREAST 2020-11-28 18:45 TYPE 2 DIABETES MELLITUS WITHOUT [facility] COMPLICATIONS 2020-11-28 18:45 ESSENTIAL (PRIMARY) HYPERTENSION [facility] 2020-11-28 18:45 OTHER CHEST PAIN [facility] 2020-11-28 18:45 STOPPER GRINDER (CURRENT) USE OF ORAL [facility] HYPOGLYCEMIC DRUGS Allergies date description facility [facility] codeine [facility] No known allergies [facility] GADOLINIUM [facility] IBUPROFEN [facility] MORPHINE [facility] SOY ISOFLAVONES [facility] [place] IODINATED DIAGNOSTIC AGENTS [facility] SULFA ANTIBIOTICS [facility] BIGUANIDES [facility] NO KNOWN ALLERGIES [facility] ALMOND OIL [facility] KIWI [facility] NITROUS OXIDE [facility] [place] CARISOPRODOL [facility] HYDROCHLOROTHIAZIDE [facility] DILTIAZEM HCL [facility] NO ALLERGY INFORMATION AVAILABLE [facility] NO KNOWN ALLERGIES [facility] ASPIRIN [facility] HYDROCODONE-ACETAMINOPHEN [facility] hydrochlorothiazide [facility] formaldehyde [facility] nickel [facility] BEE VENOM [facility] NO KNOWN ALLERGIES [facility] hydrochlorothiazide [facility] formaldehyde [facility] nickel [facility] Results Social History date description facility [id number]
== END 2020-11-28 18:29 | disposition critical access hospital (66) ==
LOC: EMS 18:28
PROVIDERS: ATTEND Surgery
DX: M79.602 Pain in left arm (principal); M54.2 Cervicalgia
CPT/HCPCS: A0425; A0427

== ENCOUNTER 2020-11-28 18:45 | Emergency (ER) | payer MEDICARE, OTHER ==
--- NOTE | 2020-11-28 19:28 | ED Physician Documentation ---
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 She had mild shortness of breath. 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 denies: Cough GI: reports: Reviewed and negative : denies: Dysuria, Frequency Musculoskeletal: denies: Extremity swelling Neurologic: reports: Reviewed and negative PD PAST MEDICAL HISTORY - Past Medical History Past Medical History: Yes Cardiovascular: Hypertension, High cholesterol Respiratory: None Neuro: None Endocrine/Autoimmune: Type 2 diabetes GI: GERD, Ulcers, Other BUSINESS MANAGEMENT ANALYST: Other HEENT: Chronic vision loss, Macular degeneration, Other Psych: Depression Musculoskeletal: Osteoarthritis, Gout, Chronic back pain Derm: Rosacea - Past Surgical History Past Surgical History: Yes General: Appendectomy, Colonoscopy, EGD /BUSINESS MANAGEMENT ANALYST: Dilation and currettage, Hysterectomy HEENT: Tonsil/Adenoidectomy - Present Medications Home Medications: Ambulatory Orders Medication Instructions Recorded Confirmed Aspirin 81 mg PO QPM 12/29/17 04/22/18 Metformin HCl [Metformin ER 1,000 mg PO 1700 12/29/17 04/22/18 Osmotic] Red Yeast Rice 1,200 mg PO DAILY 12/29/17 04/22/18 allopurinoL [Zyloprim] 200 mg PO QPM 12/29/17 04/22/18 Cholecalciferol (Vitamin D3) 1,000 units PO DAILY 04/22/18 04/22/18 [Vitamin D3] Omeprazole 20 mg PO QDAC 04/22/18 04/22/18 Losartan [Cozaar] 50 mg PO DAILY #30 tablet 04/25/18 - Allergies Allergies/Adverse Reactions: Allergies Allergy/AdvReac Type Severity Reaction Status Date / Time hydrochlorothiazide Allergy Anaphylaxis Verified 11/28/20 18:57 formaldehyde AdvReac Itching Verified 12/30/17 07:57 nickel AdvReac Edema Verified 12/30/17 07:57 - Social History Does the pt smoke?: No Smoking Status: Never smoker Does the pt drink ETOH?: No Does the pt have substance abuse?: No - Immunizations Immunizations are current?: No - POLST Patient has POLST: No POLST Status: Full Code PD ED PE NORMAL - Vitals Vital signs reviewed: Yes - General General: Alert and oriented X 3, No acute distress, Well developed/nourished - Neck Neck: Supple, no meningeal sign - Cardiac Cardiac: RRR, No murmur, No gallop, No rub - Respiratory Respiratory: No respiratory distress, Clear bilaterally - Abdomen Abdomen: Soft, Non tender - Derm Derm: Normal color, Warm and dry - Extremities Extremities: No edema Results - Vitals Vitals: Oxygen O2 Source Room air - EKG (time done) No standard instances Rate: Rate (enter#) (82) Rhythm: NSR [place]: RAD Intervals: Normal MD QRS: Normal Ischemia: ST depression (V5, V6) - Labs Labs: Laboratory Tests 11/28/20 11/28/20 11/28/20 20:30 20:30 20:30 WBC 7.0 RBC 4.70 Hgb 15.1 Hct 42.8 MCV 91.1 MCH 32.1 H MCHC 35.3 RDW 12.3 Plt Count 222 MPV 9.8 Neut # (Auto) 3.4 Lymph # (Auto) 2.6 [place] # (Auto) 0.5 Eos # (Auto) 0.4 Baso # (Auto) 0.1 Absolute Nucleated RBC 0.00 Nucleated RBC % 0.0 Sodium 135 Potassium 3.5 Chloride 102 Carbon Dioxide 22 Anion Gap 11.0 BUN 15 Creatinine 0.8 Estimated GFR (MDRD) 71 L Glucose 168 H Calcium 9.3 Troponin I High Sens 5.7 - Rads (name of study) CT chest angio Radiology: Prelim report reviewed, See rad report PD MEDICAL DECISION MAKING - ED course Complexity details: reviewed results, re-evaluated patient, considered differential, d/w patient Departure - Departure Disposition: 01 Home, Self Care Clinical Impression: Atypical chest pain Condition: Good Instructions: ED Chest Pain Atypical Unkn Cause Follow-Up: DAVI BALDWIN MD [Primary Care Provider] - Discharge Date/Time: 11/28/20 22:30
[2020-11-28 20:34] LABS: BASOPHILS # (AUTO) 0.1 10^3/uL (0.0-0.1); BASOPHILS % (AUTO) 1.4 %; EOSINOPHILS # (AUTO) 0.4 10^3/uL (0.0-0.7); EOSINOPHILS % (AUTO) 5.9 %; HCT - HEMATOCRIT 42.8 % (37.0-47.0); HGB - HEMOGLOBIN 15.1 g/dL (12.0-16.0); LYMPHOCYTES # (AUTO) 2.6 10^3/uL (1.5-3.5); LYMPHOCYTES % (AUTO) 36.5 %; MEAN CORPUSCULAR HEMOGLOBIN 32.1 pg (27.0-31.0); MEAN CORPUSCULAR HGB CONC 35.3 g/dL (32.0-36.0); MEAN CORPUSCULAR VOLUME 91.1 fL (81.0-99.0); MEAN PLATELET VOLUME 9.8 fL (7.9-10.8); MONOCYTES # (AUTO) 0.5 10^3/uL (0.0-1.0); MONOCYTES % (AUTO) 7.4 %; NEUTROPHILS # (AUTO) 3.4 10^3/uL (1.5-6.6); NEUTROPHILS % (AUTO) 48.5 %; PLT - PLATELET COUNT 222 10^3/uL (130-450); RED CELL DISTRIBUTION WIDTH 12.3 % (12.0-15.0)
[2020-11-28 20:43] LABS: CALCIUM 9.3 mg/dL (8.5-10.3); CREATININE 0.8 mg/dL (0.4-1.0); POTASSIUM 3.5 mmol/L (3.5-5.0)
[2020-11-28] MEDS ORDERED: IOVERSOL 320 100 ML VIAL IVP ONE ×2 (20:48→21:15)
[2020-11-28 21:18] VITALS: BP 190/76
--- NOTE | 2020-11-28 21:52 | CT Report ---
PROCEDURE: ANGIO CHEST W/WO INDICATIONS: upper back pain CONTRAST: IV CONTRAST: Optiray 320 ml: 80 PO CONTRAST: *NO PO CONTRAST TECHNIQUE: After the administration of intravenous contrast, 2 mm thick sections acquired from the pulmonary api jenn to the posterior costophrenic angles. 3-dimensional maximum intensity projection (MIP) coronal a nd sagittal reformats were then acquired through the thorax. For radiation dose reduction, the follow ing was used: automated exposure control, adjustment of mA and/or kV according to patient size. COMPARISON: None FINDINGS: Image quality: Excellent. Pulmonary arteries: Pulmonary arteries are normal in size, and demonstrate no intraluminal filling d efects to suggest central pulmonary embolism. Lungs and pleura: Lungs are clear. No pleural effusions or pneumothorax. Central and peripheral ai rways are patent. Mediastinum: Heart size is normal, without pericardial effusion. No mediastinal or hilar adenopathy . Thoracic aorta is normal in caliber and enhancement. Esophagus is normal in caliber, without hiat al hernia. The coronary arteries have atherosclerotic calcifications. Bones and chest wall: No suspicious bony lesions. Ribs and thoracic spine appear intact throughout. The thyroid is normal. No axillary or supraclavicular adenopathy. Abdomen: Visualized upper abdominal solid organs appear normal in the early arterial phase of enhanc ement. IMPRESSION: 1. No pulmonary embolism. 2. No acute abnormality of the chest. 3. Coronary artery calcifications. Reviewed by: Robert Quiroz on 11/28/2020 9:50 PM PST Approved by: Robert Quiroz on 11/28/2020 9:50 PM PST Station ID: [id number]
--- OUTSIDE RECORDS SUMMARY | 2020-12-06 00:28 | EXTERNAL MEDICAL SUMMARY RPT | Continuity of Care Document ---
:1950 Demographics Phone Unavailable Preferred Language Unknown Marital Status Unknown Yazidism Affiliation Unknown Race Unknown Ethnic Group Unknown Author Organization [place] Address [address] [phone] Phone Care Team Providers Name Role Phone CLERC Unavailable Unavailable LEIDY Unavailable Unavailable Murry Unavailable Unavailable Clerc Unavailable Unavailable Wilfredo Unavailable Unavailable Problems date description facility 2013-06-24 08:00 ABN LIVER FUNCTION STUDY [facility] 2013-07-07 14:31 BONE CARTILAGE DIS NOS [facility] 2013-07-07 14:[address] [facility] 2015-01-12 08:28 TINNITUS NOS [facility] 2015-07-18 09:03 BONE CARTILAGE DIS NOS [facility] 2015-07-18 09:03 ASYMPT POSTMENOPAUSAL STATUS [facility] (AGE-RELATED) (NATURAL) 2017-12-30 06:58 TYPE 2 DIABETES MELLITUS WITHOUT [facility] COMPLICATIONS 2017-12-30 06:58 HYPERLIPIDEMIA, UNSPECIFIED [facility] 2017-12-30 06:58 ESSENTIAL (PRIMARY) HYPERTENSION [facility] 2017-12-30 06:58 ESOPHAGITIS, UNSPECIFIED [facility] 2017-12-30 06:58 DUODENAL ULCER, UNSP ACUTE OR [facility] CHRONIC, W/O HEMOR OR PERF 2017-12-30 06:58 DUODENITIS WITHOUT BLEEDING [facility] 2017-12-30 06:58 DIAPHRAGMATIC HERNIA WITHOUT [facility] OBSTRUCTION OR GANGRENE 2017-12-30 06:58 OTHER HEMORRHOIDS [facility] 2017-12-30 06:58 HEARTBURN [facility] 2017-12-30 06:58 ENCOUNTER FOR SCREENING FOR [facility] MALIGNANT NEOPLASM OF COLON 2017-12-30 06:58 RECRUITING ASSISTANT (CURRENT) USE OF ASPIRIN [facility] 2017-12-30 06:58 LONGTERM (CURRENT) USE OF ORAL [facility] HYPOGLYCEMIC DRUGS 2018-04-22 14:13 TYPE 2 DIABETES MELLITUS WITHOUT [facility] COMPLICATIONS 2018-04-22 14:13 PURE HYPERCHOLESTEROLEMIA, [facility] UNSPECIFIED 2018-04-22 14:13 HYPO-OSMOLALITY AND HYPONATREMIA [facility] 2018-04-22 14:13 ALCOHOL ABUSE, IN REMISSION [facility] 2018-04-22 14:13 OTHER CHRONIC PAIN [facility] 2018-04-22 14:13 UNSPECIFIED CATARACT [facility] 2018-04-22 14:13 UNSPECIFIED MACULAR DEGENERATION [facility] 2018-04-22 14:13 ESSENTIAL (PRIMARY) HYPERTENSION [facility] 2018-04-22 14:13 GASTRO-ESOPHAGEAL REFLUX DISEASE [facility] WITHOUT ESOPHAGITIS 2018-04-22 14:13 FATTY (CHANGE OF) LIVER, NOT [facility] ELSEWHERE CLASSIFIED 2018-04-22 14:13 GOUT, UNSPECIFIED [facility] 2018-04-22 14:13 UNSPECIFIED OSTEOARTHRITIS, [facility] UNSPECIFIED SITE 2018-04-22 14:13 CHRONIC GOUT, UNSPECIFIED, WITHOUT [facility] 2018-04-22 14:13 UNSPECIFIED KYPHOSIS, SITE [facility] UNSPECIFIED 2018-04-22 14:13 SCOLIOSIS, UNSPECIFIED [facility] 2018-04-22 14:13 SPONDYLOSIS, UNSPECIFIED [facility] 2018-04-22 14:13 DORSALGIA, UNSPECIFIED [facility] 2018-04-22 14:13 OTHER SPECIFIED ABNORMAL FINDINGS [facility] OF BLOOD CHEMISTRY 2018-04-22 14:13 ABNORMAL RADIOLOGIC FINDINGS ON DX [facility] IMAGING OF R KIDNEY 2018-04-22 14:13 ADVRS EFF OF CRBNC-ANHYDR INHIBTR, [facility] BENZO/OTH DIURETC, INIT 2018-04-22 14:13 LONGTERM (CURRENT) USE OF ASPIRIN [facility] 2018-04-22 14:13 RECRUITING ASSISTANT (CURRENT) USE OF ORAL [facility] HYPOGLYCEMIC DRUGS 2018-04-22 14:13 OTHER LONGTERM (CURRENT) DRUG [facility] THERAPY 2018-04-22 14:13 PERSONAL HISTORY OF MALIGNANT [facility] NEOPLASM OF CERVIX UTERI 2018-04-22 14:13 PERSONAL HISTORY OF PEPTIC ULCER [facility] DISEASE 2018-04-22 14:13 PERSONAL HISTORY OF NICOTINE [facility] DEPENDENCE 2018-04-22 14:[address] [facility] 2018-04-22 14:13 ACQUIRED ABSENCE OF BOTH CERVIX [facility] AND UTERUS 2020-07-25 07:57 OTH ABN AND INCONCLUSIVE FINDINGS [facility] ON DX IMAGING OF BREAST 2020-07-25 07:57 ENCNTR SCREEN MAMMOGRAM FOR [facility] MALIGNANT NEOPLASM OF BREAST 2020-07-25 08:31 OTH DISRD OF BONE DENSITY AND [facility] STRUCTURE, MULTIPLE SITES 2020-08-21 10:34 OTH ABN AND INCONCLUSIVE FINDINGS [facility] ON DX IMAGING OF BREAST 2020-11-28 18:45 TYPE 2 DIABETES MELLITUS WITHOUT [facility] COMPLICATIONS 2020-11-28 18:45 ESSENTIAL (PRIMARY) HYPERTENSION [facility] 2020-11-28 18:45 OTHER CHEST PAIN [facility] 2020-11-28 18:45 RECRUITING ASSISTANT (CURRENT) USE OF ORAL [facility] HYPOGLYCEMIC DRUGS Allergies date description facility [facility] No known allergies [facility] GADOLINIUM [facility] IBUPROFEN [facility] MORPHINE [facility] SOY ISOFLAVONES [facility] [place] IODINATED DIAGNOSTIC AGENTS [facility] SULFA ANTIBIOTICS [facility] BIGUANIDES [facility] NO KNOWN ALLERGIES [facility] ALMOND OIL [facility] KIWI [facility] NITROUS OXIDE [facility] [place] CARISOPRODOL [facility] HYDROCHLOROTHIAZIDE [facility] DILTIAZEM HCL [facility] NO ALLERGY INFORMATION AVAILABLE [facility] NO KNOWN ALLERGIES [facility] ASPIRIN [facility] HYDROCODONE-ACETAMINOPHEN [facility] hydrochlorothiazide [facility] formaldehyde [facility] nickel [facility] BEE VENOM [facility] NO KNOWN ALLERGIES [facility] hydrochlorothiazide [facility] formaldehyde [facility] nickel [facility] Results Social History date description facility [id number]
== END 2020-11-28 22:30 | disposition home or self-care (01) ==
LOC: EDUNIT# → ED 18:45
DX: R07.89 Other chest pain (principal); I10 Essential (primary) hypertension; E11.9 Type 2 diabetes mellitus without complications; Z79.84 Long term (current) use of oral hypoglycemic drugs
CPT/HCPCS: 36415; 71275; 80048; 84484; 85025; 93005; 99284; Q9967

== ENCOUNTER 2021-04-22 19:41 | Emergency (ER) | payer MEDICARE, OTHER ==
[2021-04-22 20:10] LABS: BASOPHILS # (AUTO) 0.1 10^3/uL (0.0-0.1); EOSINOPHILS # (AUTO) 0.3 10^3/uL (0.0-0.7); EOSINOPHILS % (AUTO) 3.4 %; HCT - HEMATOCRIT 43.1 % (37.0-47.0); HGB - HEMOGLOBIN 15.5 g/dL (12.0-16.0); LYMPHOCYTES # (AUTO) 4.1 10^3/uL (1.5-3.5); LYMPHOCYTES % (AUTO) 45.5 %; MEAN CORPUSCULAR HEMOGLOBIN 33.3 pg (27.0-31.0); MEAN CORPUSCULAR VOLUME 92.5 fL (81.0-99.0); MEAN PLATELET VOLUME 9.5 fL (7.9-10.8); MONOCYTES # (AUTO) 0.6 10^3/uL (0.0-1.0); MONOCYTES % (AUTO) 7.1 %; NEUTROPHILS # (AUTO) 3.9 10^3/uL (1.5-6.6); NEUTROPHILS % (AUTO) 42.7 %; PLT - PLATELET COUNT 243 10^3/uL (130-450); RED BLOOD COUNT 4.66 10^6/uL (4.20-5.40); RED CELL DISTRIBUTION WIDTH 12.2 % (12.0-15.0)
[2021-04-22 20:32] LABS: ALBUMIN 4.2 g/dL (3.2-5.5); ALBUMIN/GLOBULIN RATIO 1.4 (1.0-2.2); BILIRUBIN,TOTAL 0.9 mg/dL (0.2-1.0); CALCIUM 9.2 mg/dL (8.5-10.3); CREATININE 0.9 mg/dL (0.4-1.0); POTASSIUM 3.6 mmol/L (3.5-5.0); TOTAL PROTEIN 7.1 g/dL (6.7-8.2)
--- NOTE | 2021-04-22 20:37 | XRAY Report ---
PROCEDURE: Chest 1 View X-Ray INDICATIONS: Chest Pain TECHNIQUE: One view of the chest was acquired. COMPARISON: CT pulmonary angiogram 11/28/2020. FINDINGS: Surgical changes and devices: None. Lungs and pleura: No pleural effusions or pneumothorax. No consolidation. Prominent pulmonary vascul ature markings. Question of right upper lobe pulmonary nodule. Mediastinum: Mediastinal contours appear normal. Heart size is upper limits of normal. Bones and chest wall: No suspicious bony lesions. Overlying soft tissues appear unremarkable. IMPRESSION: Suspect pulmonary vasculature engorgement. Question of right upper lobe pulmonary nodule. -Recommend nonemergent low-dose CT chest for further evaluation. Reviewed by: Sanjeev Mac MD on 04/22/2021 8:36 PM PDT Approved by: Sanjeev Mac MD on 04/22/2021 8:36 PM PDT Station ID: [id number]
--- NOTE | 2021-04-22 20:39 | ED Physician Documentation ---
History of Present Illness - Stated complaint Stated Complaint: CHEST TIGHTNESS - Chief complaint Chief Complaint: Cardiac - History obtained from History obtained from: Patient - History of Present Illness Timing: Today Pain level max: 6 Pain level now: 0 - Additonal information Additional information: 70-year-old female presents to the emergency department with chest tightness that occurred about 45 minutes prior to arrival. Lasted about 15 minutes. She states the intense part only lasted for a few seconds, but then was dull. She felt like she was having a hard time catching her breath at that time. She states that it was like a band around her chest. Currently is asymptomatic and feels better. She states similar symptoms have occurred in the past, no cause found. No history of acute coronary syndrome. No history of lung disease. Does not use inhalers or nebulizers. No fevers. No chills. No cough. No recent surgery. No recent travel. No calf swelling. No history of blood clots. 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 HEENT: Chronic vision loss, Macular degeneration, Other Psych: Depression Musculoskeletal: Osteoarthritis, Gout, Chronic back pain Derm: Rosacea - Past Surgical History Past Surgical History: Yes General: Appendectomy, Colonoscopy, EGD /ELECTRONIC INTELLIGENCE OFFICER: Dilation and currettage, Hysterectomy HEENT: Tonsil/Adenoidectomy - Present Medications Home Medications: Ambulatory Orders Medication Instructions Recorded Confirmed Aspirin 81 mg PO QPM 12/29/17 04/22/18 Metformin HCl [Metformin ER 1,000 mg PO 1700 12/29/17 04/22/18 Osmotic] Red Yeast Rice 1,200 mg PO DAILY 12/29/17 04/22/18 allopurinoL [Zyloprim] 200 mg PO QPM 12/29/17 04/22/18 Cholecalciferol (Vitamin D3) 1,000 units PO DAILY 04/22/18 04/22/18 [Vitamin D3] Omeprazole 20 mg PO QDAC 04/22/18 04/22/18 Losartan [Cozaar] 50 mg PO DAILY #30 tablet 04/25/18 - Allergies Allergies/Adverse Reactions: Allergies Allergy/AdvReac Type Severity Reaction Status Date / Time hydrochlorothiazide Allergy Anaphylaxis Verified 04/22/21 19:55 formaldehyde AdvReac Itching Verified 04/22/21 19:55 nickel AdvReac Edema Verified 04/22/21 19:55 - Social History Does the pt smoke?: No Smoking Status: Never smoker Does the pt drink ETOH?: No Does the pt have substance abuse?: No - Immunizations Immunizations are current?: No - POLST Patient has POLST: No POLST Status: Full Code PD ED PE NORMAL - Vitals Vital signs reviewed: Yes - General General: Alert and oriented X 3, No acute distress, Well developed/nourished - HEENT HEENT: PERRL, Moist mucous membranes - Neck Neck: Supple, no meningeal sign - Cardiac Cardiac: RRR, Strong equal pulses - Respiratory Respiratory: No respiratory distress, Clear bilaterally - Abdomen Abdomen: Soft, Non tender, Non distended - Derm Derm: Warm and dry - Extremities Extremities: No edema, No calf tenderness / cord - Neuro Neuro: Alert and oriented X 3 - Psych Psych: Normal mood, Normal affect Results - Vitals Vitals: Vital Signs - 24 hr 04/22/21 04/22/21 04/22/21 19:59 21:30 22:30 Temperature 36.4 C L Heart Rate 77 77 Respiratory 21 17 Rate Blood Pressure 161/108 H 185/89 H Blood Pressure 198/78 H [Left] Blood Pressure 192/89 H [Right] O2 Saturation 98 97 Oxygen O2 Source Room air - EKG (time done) 1949 Rate: Rate (enter#) (89) Rhythm: NSR [place]: Normal Intervals: Normal PA QRS: Normal Ischemia: Normal ST segments - Labs Labs: Laboratory Tests 04/22/21 04/22/21 04/22/21 20:05 20:05 20:05 WBC 9.0 RBC 4.66 Hgb 15.5 Hct 43.1 MCV 92.5 MCH 33.3 H MCHC 36.0 RDW 12.2 Plt Count 243 MPV 9.5 Neut # (Auto) 3.9 Lymph # (Auto) 4.1 H [place] # (Auto) 0.6 Eos # (Auto) 0.3 Baso # (Auto) 0.1 Absolute Nucleated RBC 0.00 Nucleated RBC % 0.0 Sodium 135 Potassium 3.6 Chloride 101 Carbon Dioxide 23 Anion Gap 11.0 BUN 14 Creatinine 0.9 Estimated GFR (MDRD) 62 L Glucose 122 H Calcium 9.2 Total Bilirubin 0.9 AST 48 H ALT 67 H Alkaline Phosphatase 125 H Troponin I High Sens 6.9 Total Protein 7.1 Albumin 4.2 Globulin 2.9 Albumin/Globulin Ratio 1.4 Lipase 48 04/22/21 21:55 WBC RBC Hgb Hct MCV MCH MCHC RDW Plt Count MPV Neut # (Auto) Lymph # (Auto) [place] # (Auto) Eos # (Auto) Baso # (Auto) Absolute Nucleated RBC Nucleated RBC % Sodium Potassium Chloride Carbon Dioxide Anion Gap BUN Creatinine Estimated GFR (MDRD) Glucose Calcium Total Bilirubin AST ALT Alkaline Phosphatase Troponin I High Sens 9.4 Total Protein Albumin Globulin Albumin/Globulin Ratio Lipase - Rads (name of study) cxr Radiology: Prelim report reviewed, EMP read contemporaneously, See rad report CT pulmonary angiogram Radiology: Prelim report reviewed, EMP read contemporaneously, See rad report PD MEDICAL DECISION MAKING - ED course Complexity details: reviewed results, re-evaluated patient, considered differential (No ST elevation ME, no aortic dissection, no PE, no tension pneumothorax, no aortic aneurysm), d/w patient ED course: Unclear etiology of the patient's symptoms. Negative troponin x2. No evidence of PE. No acute airspace opacity. She was counseled regarding the pulmonary nodules and emphysematous change. Possible bronchospasm? Recommend that she follow-up with her doctor for further care. Patient continues to be asymptomatic here. Patient counseled regarding signs and symptoms for which I believe and urgent re-evaluation would be necessary. Patient with good understanding of and agreement to plan and is comfortable going home at this time This document was made in part using voice recognition software. While efforts are made to proofread this document, sound alike and grammatical errors may occur. IMPRESSION: 1. No pulmonary embolism. 2. No acute airspace opacity. 3. A few pulmonary nodules. Largest in the right upper lobe measuring up 1.1 cm. This is concerning for metastatic disease. Emphysematous change. -This can be further evaluated with PET/CT. CT-guided biopsy could also be performed. CXR Suspect pulmonary vasculature engorgement. Question of right upper lobe pulmonary nodule. -Recommend nonemergent low-dose CT chest for further evaluation. Departure - Departure Disposition: 01 Home, Self Care Clinical Impression: Pulmonary nodules Chest pain Qualifiers: Chest pain type: unspecified Qualified Code(s): R07.9 - Chest pain, unspecified Condition: Good Instructions: ED Chest Pain Atypical Unkn Cause Follow-Up: Ev Colvin MD [Primary Care Provider] - Within 3 Days Comments: The cause of your symptoms is unclear today. You should follow-up with your doctor this week for a cardiac stress test. Contact their office on Friday. You also have pulmonary nodules, these should be further evaluated with your doctor, she may want to perform a PET scan or obtain a CT-guided biopsy of the nodules. Return if you worsen. your liver function tests were also mildly abnormal today and should be rechecked next week with your doctor. CT Scan chest IMPRESSION: 1. No pulmonary embolism. 2. No acute airspace opacity. 3. A few pulmonary nodules. Largest in the right upper lobe measuring up 1.1 cm. This is concerning for metastatic disease. Emphysematous change. -This can be further evaluated with PET/CT. CT-guided biopsy could also be performed. Discharge Date/Time: 04/22/21 22:45
[2021-04-22] MEDS ORDERED: IOVERSOL 320 100 ML VIAL IVP ONE ×2 (20:47→21:30)
--- NOTE | 2021-04-22 22:14 | CT Report ---
PROCEDURE: ANGIO CHEST W/WO INDICATIONS: chest tightness CONTRAST: IV CONTRAST: Optiray 320 ml: 100 PO CONTRAST: *NO PO CONTRAST TECHNIQUE: After the administration of intravenous contrast, 2 mm thick sections acquired from the pulmonary api jenn to the posterior costophrenic angles. 3-dimensional maximum intensity projection (MIP) coronal a nd sagittal reformats were then acquired through the thorax. For radiation dose reduction, the follow ing was used: automated exposure control, adjustment of mA and/or kV according to patient size. COMPARISON: CT pulmonary angiogram 11/28/2020. FINDINGS: Image quality: Excellent. Pulmonary arteries: Pulmonary arteries are normal in size, and demonstrate no intraluminal filling d efects to suggest central pulmonary embolism. Lungs and pleura: A few pulmonary nodules. For example: -Right upper lobe pulmonary nodule measuring 1.1 x 1 cm, (6/106), previously 0.8 cm. -Left lower lobe groundglass nodular opacity measuring 0.9 cm, (6/127), previously 0.7 cm. -Left lower lobe 0.6 cm, (6/230), previously 0.4 cm. Mild emphysematous change. A few additional small areas of ground glass opacity. No pleural effusions or pneumothorax. Central and peripheral airways are patent. Mediastinum: Heart size is normal, without pericardial effusion. Coronary artery calcifications. No mediastinal or hilar adenopathy. Thoracic aorta is normal in caliber and enhancement. Moderate athe rosclerotic plaque. Esophagus is normal in caliber, without hiatal hernia. Bones and chest wall: No suspicious bony lesions. Ribs and thoracic spine appear intact throughout. No axillary or supraclavicular adenopathy. The thyroid is normal in size and there are no incident al findings. Abdomen: Visualized upper abdominal solid organs appear normal in the early arterial phase of enhanc ement. IMPRESSION: 1. No pulmonary embolism. 2. No acute airspace opacity. 3. A few pulmonary nodules. Largest in the right upper lobe measuring up 1.1 cm. This is concerning f or metastatic disease. Emphysematous change. -This can be further evaluated with PET/CT. CT-guided biopsy could also be performed. Reviewed by: Sanjeev Mac MD on 04/22/2021 10:13 PM PDT Approved by: Sanjeev Mac MD on 04/22/2021 10:13 PM PDT Station ID: [id number]
[2021-04-22 22:46] VITALS: BP 185/89
== END 2021-04-22 22:45 | disposition home or self-care (01) ==
LOC: ED 19:41
DX: R07.9 Chest pain, unspecified (principal); R91.8 Other nonspecific abnormal finding of lung field; I10 Essential (primary) hypertension; E11.9 Type 2 diabetes mellitus without complications; Z79.84 Long term (current) use of oral hypoglycemic drugs
CPT/HCPCS: 36415; 71045; 71275; 80053; 83690; 84484; 85025; 93005; 99284; Q9967

== ENCOUNTER 2021-05-22 19:06 | Outpatient (CLI) | payer MEDICARE, OTHER | END 2021-05-22 19:07 | disposition critical access hospital (66) | LOC: EMS 19:06 | DX: R55 Syncope and collapse (principal); R11.2 Nausea with vomiting, unspecified | CPT/HCPCS: A0425; A0427 ==

== ENCOUNTER 2021-05-22 19:22 | Emergency (ER) | payer MEDICARE, OTHER ==
--- NOTE | 2021-05-22 19:39 | ED Physician Documentation ---
PD HPI SYNCOPE - Stated complaint Stated Complaint: SYNCOPE - Chief complaint Chief Complaint: Neuro - History obtained from History obtained from: Patient - History of Present Illness Timing - onset: Today (tonight) Preceding symptoms: Headache, Nausea / vomiting, Light headed Associated symptoms: Headache (mild generalized), Nausea / vomiting Injury occurred: None Pain level max: 0 Pain level now: 0 Similar symptoms before: Has not had sx before - Additional information Additional information: patient was at home at rest, watching a movie tonight when she had sudden onset of dizziness with sensation of room spinning. This was associated with nausea, vomiting and fatigue. She was sitting when the symptoms started, and upon standing the symptoms became worse and she felt lightheaded and had to sit back down. Review of Systems Constitutional: reports: Fatigue. denies: Fever, Chills, Sweats Eyes: reports: Reviewed and negative Ears: denies: Loss of hearing, Ear pain, Tinnitus/ringing Cardiac: reports: Reviewed and negative Respiratory: reports: Reviewed and negative GI: reports: Nausea, Vomiting. denies: Abdominal Pain Neurologic: reports: Near syncope, Headache. 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: Dilation and currettage, Hysterectomy HEENT: Tonsil/Adenoidectomy - Present Medications Home Medications: Ambulatory Orders Medication Instructions Recorded Confirmed Aspirin 81 mg PO QPM 12/29/17 05/22/21 Metformin HCl [Metformin ER 1,000 mg PO 1700 12/29/17 05/22/21 Osmotic] Red Yeast Rice 1,200 mg PO DAILY 12/29/17 05/22/21 allopurinoL [Zyloprim] 200 mg PO QPM 12/29/17 05/22/21 Cholecalciferol (Vitamin D3) 1,000 units PO DAILY 04/22/18 05/22/21 [Vitamin D3] Omeprazole 20 mg PO QDAC 04/22/18 05/22/21 Losartan [Cozaar] 50 mg PO DAILY #30 tablet 04/25/18 05/22/21 Meclizine [Antivert] 25 mg PO Q6H PRN #20 tablet 05/22/21 Ondansetron Odt [Zofran] 4 mg TL Q6H PRN #10 tablet 05/22/21 diazePAM [Valium] 5 mg PO TID PRN #14 tablet 05/22/21 - Allergies Allergies/Adverse Reactions: Allergies Allergy/AdvReac Type Severity Reaction Status Date / Time hydrochlorothiazide Allergy Anaphylaxis Verified 05/22/21 19:26 formaldehyde AdvReac Itching Verified 05/22/21 19:26 nickel AdvReac Edema Verified 05/22/21 19:26 - Social History Does the pt smoke?: No Smoking Status: Never smoker Does the pt drink ETOH?: No Does the pt have substance abuse?: No - Immunizations Immunizations are current?: No - POLST Patient has POLST: No POLST Status: Full Code PD ED PE NORMAL - Vitals Vital signs reviewed: Yes - General General: Alert and oriented X 3, No acute distress, Well developed/nourished - HEENT HEENT: PERRL, EOMI - Neck Neck: Supple, no meningeal sign - Cardiac Cardiac: RRR, No murmur, No gallop, No rub - Respiratory Respiratory: No respiratory distress, Clear bilaterally - Abdomen Abdomen: Soft, Non tender - Neuro Neuro: Alert and oriented X 3, contact lens assistant 2-12 intact, No motor deficit, No sensory deficit, Normal speech Eye Opening: Spontaneous Motor: Obeys Commands Verbal: Oriented GCS Score: 15 Results - Vitals Vitals: Oxygen O2 Source Room air - EKG (time done) No standard instances Rate: Rate (enter#) (69) Rhythm: NSR Elton: Normal Intervals: Normal PA QRS: Normal Ischemia: Normal ST segments - Labs Labs: Laboratory Tests 05/22/21 05/22/21 05/22/21 19:38 19:38 19:38 WBC 8.1 RBC 4.81 Hgb 15.6 Hct 43.7 MCV 90.9 MCH 32.4 H MCHC 35.7 RDW 11.8 L Plt Count 235 MPV 9.8 Neut # (Auto) 3.6 Lymph # (Auto) 3.5 [place] # (Auto) 0.6 Eos # (Auto) 0.3 Baso # (Auto) 0.1 Absolute Nucleated RBC 0.00 Nucleated RBC % 0.0 Sodium 132 L Potassium 3.2 L Chloride 98 L Carbon Dioxide 22 Anion Gap 12.0 BUN 8 Creatinine 0.7 Estimated GFR (MDRD) 82 L Glucose 131 H Calcium 9.1 Total Bilirubin 1.3 H AST 49 H ALT 49 Alkaline Phosphatase 126 H Troponin I High Sens 3.8 Total Protein 7.2 Albumin 4.5 Globulin 2.7 Albumin/Globulin Ratio 1.7 Lipase 38 - Rads (name of study) cxr Radiology: Prelim report reviewed, See rad report CT head Radiology: Prelim report reviewed, See rad report PD MEDICAL DECISION MAKING - ED course Complexity details: reviewed results, re-evaluated patient, considered differential, d/w patient ED course: NAD at rest although she has worsening of her dizziness with movement of head; she prefers to lie still on the stretcher. She is given IV fluids, zofran, and PO antivert with dramatic improvement on reevaluation. Incidental findings on blood work includes sodium 132, potassium 3.2. Her EKG is normal and troponin is normal. CXR and CTH have no concerning findings (CXR demonstrates nodule noted on previous study). She is given PO potassium. Results d/w patient and she is comfortable with d/c home. Departure - Departure Disposition: 01 Home, Self Care Clinical Impression: Vertigo Condition: Good Instructions: ED Vertigo Unspecified Follow-Up: Ev Colvin MD [Primary Care Provider] - Prescriptions: Meclizine [Antivert] 25 mg PO Q6H PRN #20 tablet PRN Reason: Vertigo diazePAM [Valium] 5 mg PO TID PRN #14 tablet PRN Reason: Vertigo Ondansetron Odt [Zofran] 4 mg TL Q6H PRN #10 tablet PRN Reason: Nausea / Vomiting Discharge Date/Time: 05/22/21 22:59
[2021-05-22 19:47] LABS: BASOPHILS # (AUTO) 0.1 10^3/uL (0.0-0.1); EOSINOPHILS # (AUTO) 0.3 10^3/uL (0.0-0.7); EOSINOPHILS % (AUTO) 3.5 %; HCT - HEMATOCRIT 43.7 % (37.0-47.0); HGB - HEMOGLOBIN 15.6 g/dL (12.0-16.0); LYMPHOCYTES # (AUTO) 3.5 10^3/uL (1.5-3.5); LYMPHOCYTES % (AUTO) 43.9 %; MEAN CORPUSCULAR HEMOGLOBIN 32.4 pg (27.0-31.0); MEAN CORPUSCULAR HGB CONC 35.7 g/dL (32.0-36.0); MEAN CORPUSCULAR VOLUME 90.9 fL (81.0-99.0); MEAN PLATELET VOLUME 9.8 fL (7.9-10.8); MONOCYTES # (AUTO) 0.6 10^3/uL (0.0-1.0); MONOCYTES % (AUTO) 7.2 %; NEUTROPHILS # (AUTO) 3.6 10^3/uL (1.5-6.6); NEUTROPHILS % (AUTO) 44.2 %; PLT - PLATELET COUNT 235 10^3/uL (130-450); RED BLOOD COUNT 4.81 10^6/uL (4.20-5.40); RED CELL DISTRIBUTION WIDTH 11.8 % (12.0-15.0); WHITE BLOOD COUNT 8.1 x10^3/uL (4.8-10.8)
[2021-05-22 19:58] LABS: ALBUMIN 4.5 g/dL (3.2-5.5); ALBUMIN/GLOBULIN RATIO 1.7 (1.0-2.2); CALCIUM 9.1 mg/dL (8.5-10.3); CREATININE 0.7 mg/dL (0.4-1.0); POTASSIUM 3.2 mmol/L (3.5-5.0); TOTAL PROTEIN 7.2 g/dL (6.7-8.2)
--- NOTE | 2021-05-22 19:59 | XRAY Report ---
PROCEDURE: Chest 1 View X-Ray INDICATIONS: Chest Pain TECHNIQUE: One view of the chest was acquired. COMPARISON: Chest x-ray one view, 04/22/2021. Chest CT angiogram, 04/22/2021. FINDINGS: Surgical changes and devices: None. Lungs and pleura: There is a 1 cm nodular density in the right upper lobe. No pleural effusions or p neumothorax. Mediastinum: Mediastinal contours appear normal. Heart size is normal. Bones and chest wall: No suspicious bony lesions. Overlying soft tissues appear unremarkable. IMPRESSION: 1. No acute cardiopulmonary disease. 2. 1 cm nodule in the right upper lobe. This was under chest CT dated 04/12/2021. PET CT was suggested for follow-up. Reviewed by: Rosa Bermudez MD on 05/22/2021 7:58 PM PDT Approved by: Rosa Bermudez MD on 05/22/2021 7:58 PM PDT Station ID: [id number]
[2021-05-22] MEDS ORDERED: MECLIZINE 12.5 MG TABLET PO STA (20:02)
[2021-05-22] MEDS ORDERED: SODIUM CHLORIDE 0.9% 1,000 ML IV STA (20:02)
[2021-05-22] MEDS ORDERED: ONDANSETRON 4 MG/2 ML VIAL IVP STA (20:02)
[2021-05-22 20:06] LABS: BILIRUBIN,TOTAL 1.3 mg/dL (0.2-1.0)
--- NOTE | 2021-05-22 21:04 | CT Report ---
PROCEDURE: HEAD WO INDICATIONS: dizziness, headache TECHNIQUE: Noncontrast 4.5 mm thick angled axial sections acquired from the foramen magnum to the vertex. For r adiation dose reduction, the following was used: automated exposure control, adjustment of mA and/or kV according to patient size. COMPARISON: None. FINDINGS: Image quality: Excellent. CSF spaces: Basal cisterns are patent. No extra-axial fluid collections. Ventricles are normal in size and shape. Brain: No midline shift. No intracranial masses or hemorrhage. There is mild cerebral volume loss. Mild periventricular white matter chronic small vessel ischemic changes are noted. Bills-white matter interface is normal. Skull and face: Calvarium and visualized facial bones are intact, without suspicious lesions. Sinuses: Visualized sinuses and mastoids are clear. IMPRESSION: No acute intracranial abnormality. Reviewed by: Rosa Bermudez MD on 05/22/2021 9:02 PM PDT Approved by: Rosa Bermudez MD on 05/22/2021 9:02 PM PDT Station ID: [id number]
[2021-05-22] MEDS ORDERED: POTASSIUM CHLORIDE 20 MEQ TABLET PO STA (22:27)
[2021-05-22 23:00] VITALS: BP 180/71
== END 2021-05-22 22:59 | disposition home or self-care (01) ==
LOC: EDUNIT# → ED 19:22 → SUPCPDRO 19:22 → ED 22:59
DX: R42 Dizziness and giddiness (principal); R11.2 Nausea with vomiting, unspecified; R53.83 Other fatigue; R91.1 Solitary pulmonary nodule; I10 Essential (primary) hypertension; E11.9 Type 2 diabetes mellitus without complications; Z79.84 Long term (current) use of oral hypoglycemic drugs; Z79.82 Long term (current) use of aspirin
CPT/HCPCS: 36415; 70450; 71045; 80053; 83690; 84484; 85025; 93005; 96361; 96374; 99284; A9270

== ENCOUNTER 2021-09-14 14:17 | Outpatient (CLI) | payer MEDICARE, OTHER ==
--- NOTE | 2021-09-14 16:56 | CT Report ---
PROCEDURE: CHEST WO INDICATIONS: LUNG CA TECHNIQUE: Noncontrast 1mm axial images were acquired from the pulmonary apices to the posterior costophrenic an gles. Axial 5 mm soft tissue kernel reconstructions were performed as well as 8 mm axial MIP and cor onal and sagittal 5 mm reformations. For radiation dose reduction, the following was used: automate d exposure control, adjustment of mA and/or kV according to patient size. COMPARISON: April 22, 2021 FINDINGS: Thyroid: Homogeneous. Vasculature: Normal size and contour. Calcified atheromatous change of the aorta. Heart: No cardiomegaly or pericardial effusion. Minimal coronary artery calcification. Mediastinum/filiberto: No pathologically enlarged lymph nodes by size criteria. Lung/pleura: Slight interval enlargement of the previously described pulmonary nodule in the right up per lobe, now measuring up to 1.5 cm (series 4, image 77); previously measuring up to 1.1 cm (series 6, image 106). Additional subcentimeter, bilateral pulmonary nodules are seen, which appear grossly unchanged. Centrilobular emphysema change. No pleural effusion or pneumothorax. Tracheobronchial tree: Patent. Upper abdomen: No acute abnormality. Bones: No significant abnormality. Chest wall: No significant abnormality. IMPRESSION: 1.Slight interval enlargement of the patient's right upper lobe pulmonary nodule, concerning for a ne oplastic process. PET/CT or CT guided biopsy should be considered. Reviewed by: Quan Caicedo MD on 09/14/2021 4:55 PM PDT Approved by: Quan Caicedo MD on 09/14/2021 4:55 PM PDT Station ID: [id number]
== END 2021-09-14 14:18 | disposition home or self-care (01) ==
LOC: DI 14:17
PROVIDERS: ATTEND Nurse Practitioner
DX: C34.11 Malignant neoplasm of upper lobe, right bronchus or lung (principal); R91.1 Solitary pulmonary nodule

== ENCOUNTER 2022-10-24 11:38 | Outpatient (CLI) | payer MEDICARE, OTHER ==
--- NOTE | 2022-10-24 14:02 | CT Report ---
PROCEDURE: CHEST WO INDICATIONS: LUNG CA TECHNIQUE: Noncontrast 1mm axial images were acquired from the pulmonary apices to the posterior costophrenic an gles. Axial 5 mm soft tissue kernel reconstructions were performed as well as 8 mm axial MIP and cor onal and sagittal 5 mm reformations. For radiation dose reduction, the following was used: automate d exposure control, adjustment of mA and/or kV according to patient size. COMPARISON: CT of the chest dated 11/28/2020. FINDINGS: Image quality: Excellent. Lungs and pleura: Postoperative changes are redemonstrated in the right thorax. A partially solid, pa rtially groundglass 8 mm nodule is redemonstrated within the right lower lobe, unchanged from the ever[place] dy dated 11/28/2020 (series 4/image 161). Slightly inferior to this there is a stable 5 mm groundglass radiopacities (series 4/image 171). A peripheral groundglass, central cavitary lesion is redemonstrat ed within the superior segment of the left lower lobe and is unchanged from the study dated 11/28/2020 (series 4/image 120). 5 mm posterior medial basal left pulmonary is unchanged (series 4/image 224). 2 adjacent 6 mm pulmonary nodules at the left lung base are unchanged. A left upper lobe groundglass n odule is unchanged (series 4/image 72). No new pulmonary nodules. No acute airspace opacities. No ple ural effusion or pneumothorax. Mediastinum: Heart size is normal. No pericardial effusion. No mediastinal adenopathy by size crit eria. Thoracic aorta and central pulmonary arteries are normal in size. Dense atheromatous calcifica tions are present throughout the thoracic aortic arch. Esophagus is normal in caliber. No hiatal he rnia. Bones and chest wall: No suspicious bony lesions. No vertebral body compression fractures. No axil robert or supraclavicular adenopathy by size criteria. The thyroid is normal in size and there are no incidental findings. Abdomen: Visualized upper abdominal solid organs and bowel loops appear normal in the absence of con trast. IMPRESSION: 1. Stable pulmonary nodules bilaterally when compared with the CT dated 11/28/2020. The largest nodules measure 6 mm in diameter. In a low risk patient, no further follow-up is recommended. In a high-risk patient, 6-12 month follow-up is recommended. Reviewed by: Sulema Kemp MD on 10/24/2022 2:00 PM PST Approved by: Sulema Kemp MD on 10/24/2022 2:00 PM PST Station ID: [id number]
== END 2022-10-24 11:39 | disposition home or self-care (01) ==
LOC: DI 11:38
PROVIDERS: ATTEND Physician Assistant
DX: C34.11 Malignant neoplasm of upper lobe, right bronchus or lung (principal)

== ENCOUNTER 2024-07-22 09:20 | Outpatient (CLI) | payer MEDICARE, OTHER ==
--- NOTE | 2024-07-22 11:46 | DEXA Report ---
PROCEDURE: Dexa Spine and/or Hip INDICATIONS: POST MENOPAUSAL TECHNIQUE: Dual energy x-ray absorptiometry (DXA) was performed on a [employer]. Regions measur ed are the AP Spine, femoral neck, and if needed forearm. COMPARISON: 07/25/2020 FINDINGS: Lumbar Spine: Bone Mineral Density: 0.981 g/cm/cm,T score: -1.5. There has been no statistically significant rees e in bone mineral density since the prior study. Left Femoral Neck: Bone Mineral Density: 0.973 g/cm/cm, T score: -0.5. Left Hip: Bone Mineral Density: 0.794 g/cm/cm,T score: -1.7. There has been no statistically significant change in bone mineral density since the prior study. FRAX risk factors: 10 year risk of major osteoporotic fracture: 8.7% major osteoporotic fracture = hip, clinical vertebral, proximal humerus, distal forearm 10 year risk of hip fracture: 1.0% (T score greater or equal to -1.0: NORMAL) (T score from -1.1 to -2.4: OSTEOPENIA) (T score less than or equal to -2.5 to: OSTEOPOROSIS) Impression: By WHO criteria, this patient has low bone density (osteopenia). No statistical interval change in bone mineral density of the lumbar spine. No statistical interval c hange in bone mineral density of the hip. Patients with diagnosis of osteoporosis or osteopenia should have regular bone mineral density assess ment. For those eligible for Medicare, routine testing is allowed once every 2 years. Testing frequ ency can be increased for patients who have rapidly progressing disease or for those who are receivin g medical therapy to restore bone mass. Reviewed by: Jarad Gerard MD on 07/22/2024 11:45 AM PDT Approved by: Jarad Gerard MD on 07/22/2024 11:45 AM PDT Station ID: [id number]
== END 2024-07-22 09:21 | disposition home or self-care (01) ==
LOC: DI 09:20
PROVIDERS: ATTEND Nurse Practitioner Family
DX: M85.89 Other specified disorders of bone density and structure, multiple sites (principal); Z78.0 Asymptomatic menopausal state